=== PATIENT | male | born 1945 | race Native Hawaiian/Other Pacific Islander ===

== ENCOUNTER 2017-10-13 14:15 | Outpatient (CLI) | payer OTHER ==
[~2017-10-13 14:15] MED LIST: ASPIRIN325 M1 PO; CENTRUM SILVER PO; DEXL60CA4 PO; DIOVAN HCT160 MG/25 PO; LOMOTIL2.5 MG PO; TESTOST ENA200 MG/ML IM; [UNRECOGNIZED DRUG - CODE] PO
== END 2017-10-13 21:50 | disposition home or self-care (01) ==
LOC: RAD 14:15
DX: M54.2 Cervicalgia (principal); M54.5 Low back pain

== ENCOUNTER 2017-12-15 07:26 | Outpatient (CLI) | payer OTHER | END 2017-12-15 19:46 | disposition home or self-care (01) | LOC: LABW 07:26 | DX: D75.1 Secondary polycythemia (principal) | CPT/HCPCS: 36415; 85014; 85018; 99195 ==

== ENCOUNTER 2018-02-17 14:08 | Outpatient (CLI) | payer OTHER | END 2018-02-17 20:03 | disposition home or self-care (01) | LOC: LABW 14:08 | DX: D75.1 Secondary polycythemia (principal) | CPT/HCPCS: 85014; 85018 ==

== ENCOUNTER 2018-11-04 10:50 | Outpatient (CLI) | payer OTHER | END 2018-11-04 23:17 | disposition home or self-care (01) | LOC: LABW 10:50 | DX: D75.1 Secondary polycythemia (principal) | CPT/HCPCS: 36415; 85014; 85018; 99195 ==